=== PATIENT | male | born 1955 | race Caucasian/White ===

== ENCOUNTER 2020-03-23 15:01 | Outpatient (CLI) | payer MEDICARE, OTHER | END 2020-03-23 23:59 | disposition home or self-care (01) | LOC: CFH 15:01 | PROVIDERS: ATTEND Internal Medicine Cardiovascular Disease | DX: I35.8 Other nonrheumatic aortic valve disorders (principal); I11.9 Hypertensive heart disease without heart failure; I25.10 Atherosclerotic heart disease of native coronary artery without angina pectoris | CPT/HCPCS: 93306 ==

== ENCOUNTER → 2020-04-15 | Outpatient (CLI) | payer MEDICARE, OTHER ==
[~2020-04-15] MED LIST: OMNIPAQUE 350 MG/ML, 100ML BOTTLE ONE
[2020-04-15 09:17] LABS: CREATININE 1.04 mg/dL (0.7-1.3)
== END | disposition home or self-care (01) ==
LOC: RAD 08:22
PROVIDERS: ATTEND Orthopaedic Surgery
DX: M47.26 Other spondylosis with radiculopathy, lumbar region (principal); M48.061 Spinal stenosis, lumbar region without neurogenic claudication; I25.10 Atherosclerotic heart disease of native coronary artery without angina pectoris; K80.20 Calculus of gallbladder without cholecystitis without obstruction; R22.2 Localized swelling, mass and lump, trunk; N28.1 Cyst of kidney, acquired
CPT/HCPCS: 36415; 71260; 72158; 74177; 82565; Q9967

== ENCOUNTER 2020-04-16 06:06 | Day surgery (SDC) | payer MEDICARE, OTHER ==
[~2020-04-16] VITALS: Ht 188 cm; Wt 107.6 kg
[2020-04-16 06:58] VITALS: BP 148/85
[2020-04-16] MEDS ORDERED: SODIUM CHLORIDE 0.9% 1,000 ML IV SCH (07:00)
[2020-04-16] MEDS ORDERED: FLUMAZENIL 0.1 MG/1 ML, 5ML ONE (07:35)
[2020-04-16] MEDS ORDERED: FENTANYL PF 100 MCG/2ML ONE ×2 (07:35)
[2020-04-16] MEDS ORDERED: MIDAZOLAM 1 MG/ML, 5ML ONE (07:35)
[2020-04-16] MEDS ORDERED: NALOXONE 1 MG/ML, 2ML ONE (07:35)
== END 2020-04-16 09:50 | disposition home or self-care (01) ==
LOC: OUT 06:06
PROVIDERS: ATTEND Orthopaedic Surgery
DX: D21.9 Benign neoplasm of connective and other soft tissue, unspecified (principal); I10 Essential (primary) hypertension; I25.10 Atherosclerotic heart disease of native coronary artery without angina pectoris; K75.9 Inflammatory liver disease, unspecified; F12.90 Cannabis use, unspecified, uncomplicated; Z88.8 Allergy status to other drugs, medicaments and biological substances; Z79.899 Other long term (current) drug therapy; Z87.891 Personal history of nicotine dependence; Z98.890 Other specified postprocedural states
CPT/HCPCS: 20206; 77012; 88305; 88341; 88342; 99156; J2250; J3010; J2310